=== PATIENT | female | born 1970 | race Caucasian/White ===

== ENCOUNTER 2021-10-24 08:09 | Emergency (ER) | payer MEDICAID ==
[~2021-10-24] VITALS: Ht 167.6 cm; Wt 90.9 kg
[2021-10-24 08:11] VITALS: BP 149/114
== END 2021-10-24 09:08 | disposition home or self-care (01) ==
LOC: ER 08:09
DX: F22 Delusional disorders (principal); F15.90 Other stimulant use, unspecified, uncomplicated
CPT/HCPCS: 99281